=== PATIENT | female | born 1965 | race Caucasian/White ===

== ENCOUNTER 2018-12-23 09:38 | Emergency (ER) | payer SELFPAY ==
[~2018-12-23] VITALS: Ht 162.6 cm; Wt 59.0 kg
[2018-12-23] MEDS ORDERED: LEVOFLOXACIN750 MG PO (10:06)
[2018-12-23] MEDS ORDERED: SMZ-TMP DS1 TAB PO (10:07)
[2018-12-23] MEDS ORDERED: PREDNISONE10 MG PO (10:07)
[2018-12-23] MEDS ORDERED: TACROLIMUS0.5 MG PO (10:08)
[2018-12-23] MEDS ORDERED: LOPRESSOR25 M1 PO (10:08)
[2018-12-23] MEDS ORDERED: MYCOPHENOLAT500 MG PO (10:09)
[2018-12-23] MEDS ORDERED: MAG-OX 400400 MG PO (10:09)
[2018-12-23] MEDS ORDERED: ZPAK PO (10:10)
[2018-12-23 10:18] LABS: HEMOGLOBIN 14.7 g/dl (12.0-16.0); IMMATURE GRANULOCYTES 2.9 % (0.0-5.0); MEAN CELL VOLUME 81.5 fL CALC (80.0-100.0); MEAN CORPUSCULAR HGB 27.2 pG CALC (26.0-32.0); MEAN CORPUSCULAR HGB CONC 33.4 g/L CALC (32.0-36.0); NEUT# 6.9 thou/uL (2.00-7.15); RED BLOOD COUNT 5.4 mill/uL (4.20-5.60); RED CELL DISTRI WIDTH 15.5 % (11.5-15.5)
[2018-12-23 10:22] LABS: GFR > 60 ML/MIN (>=60 (CALC)); GFR FOR AFR.AMER. > 60 ML/MIN (>=60 (CALC))
[2018-12-23 10:35] LABS: ANION GAP 15 (6-22 (CALC)); BUN 11 mg/dL (7-17); BUN/CREATININE RATIO 17 (12-20 (CALC)); CARBON DIOXIDE 28 mmol/l (22-30); CHLORIDE 96 mmol/l (95-108); CREATININE 0.7 mg/dL (0.5-1.0); GFR > 60 ML/MIN (>=60 (CALC)); GFR FOR AFR.AMER. > 60 ML/MIN (>=60 (CALC)); POTASSIUM 3.9 mmol/l (3.5-5.1); SODIUM 135 mmol/l (137-146)
[2018-12-23 12:03] VITALS: BP 125/73
== END 2018-12-23 13:14 | disposition short-term general hospital (02) | DRG 206 ==
LOC: ED 09:38 → ED-I 11:43 → ED 13:14
PROVIDERS: Family Medicine
DX: R09.02 Hypoxemia (principal); Z94.2 Lung transplant status
CPT/HCPCS: Q9967